=== PATIENT | male | born 1985 | race Caucasian/White ===

== ENCOUNTER 2018-04-26 18:59 | Inpatient (IN) | payer OTHER | END 2018-04-29 14:38 | disposition home or self-care (01) | LOC: EDH 18:59 → 3CH 04-27 12:32 → EDHIP 21:26 | PROC: 0DTJ0ZZ Resection of Appendix, Open Approach (ICD-10-PCS; principal; 2018-04-27 10:00) | DX: K35.32 Acute appendicitis with perforation, localized peritonitis, and gangrene, without abscess (principal) ==